=== PATIENT | female | born 1985 | race Caucasian/White ===

== ENCOUNTER 2020-12-07 00:58 | Emergency (ER) | payer OTHER ==
[2020-12-08 08:14] LABS: HIV SCREEN 4TH GENERATION WRFX Non Reactive (Non Reactive)
[2020-12-08 11:14] LABS: HBSAG SCREEN Negative (Negative); HEP A AB, IGM Negative (Negative); HEP B CORE AB, IGM Negative (Negative); HEP C VIRUS AB <0.1 (0.0-0.9)
== END 2020-12-07 01:50 | disposition home or self-care (01) ==
LOC: ER1 00:58
PROVIDERS: Physician Assistant
DX: Z77.21 Contact with and (suspected) exposure to potentially hazardous body fluids (principal); Z88.5 Allergy status to narcotic agent
CPT/HCPCS: 80074; 87389; 99283